=== PATIENT | female | born 1990 | race Caucasian/White ===

== ENCOUNTER 2016-12-30 16:14 | Emergency (ER) | payer OTHER ==
[~2016-12-30] VITALS: Ht 104.1 cm; Wt 115.7 kg
[2016-12-30 16:18] VITALS: BP 94/62
[2016-12-30] MEDS ORDERED: NAPROSYN500 MG PO (17:55)
[2016-12-30] MEDS ORDERED: LIDODERM 5%1 PATC1 TRANSDERM (17:55)
== END 2016-12-30 17:57 | disposition home or self-care (01) ==
LOC: ER 16:14
DX: S20.212A Contusion of left front wall of thorax, initial encounter (principal); T83.038A Leakage of other urinary catheter, initial encounter; F17.210 Nicotine dependence, cigarettes, uncomplicated; W50.0XXA Accidental hit or strike by another person, initial encounter; Y93.89 Activity, other specified; Y92.89 Other specified places as the place of occurrence of the external cause; Y99.9 Unspecified external cause status

== ENCOUNTER 2017-04-15 20:37 | Inpatient (IN) | payer OTHER ==
[~2017-04-15] VITALS: Ht 165.1 cm; Wt 105.7 kg
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
[~2017-04-15 20:37] MED LIST: LIDODERM 5%1 PATC1 TRANSDERM; NAPROSYN500 MG PO
[2017-04-15 23:10] VITALS: BP 89/50
[2017-04-16] MEDS ORDERED: FLEXERIL PO (01:13)
[2017-04-16] MEDS ORDERED: NEURONTIN 300300 M1 PO (01:13)
[2017-04-16] MEDS ORDERED: NORCO 10-325 T1 EACH PO (01:14)
[2017-04-16 03:23] VITALS: BP 86/43
[2017-04-16 06:33] LABS: HEMOGLOBIN 9.1 gm/dL (12.0-15.0); RBC 3.97 mil/uL (4.20-5.00); WBC 12.4 thou/uL (4.0-11.0)
[2017-04-16 06:35] LABS: ABSOLUTE NEUTROPHILS 7.5 thou/uL (1.4-8.2); BASOPHILS 0.7 % (0.0-2.0); EOSINOPHILS 5.5 % (0.0-3.0); HEMATOCRIT 29.3 % (37.0-47.0); MCH 22.9 pg (26.0-34.0); MCV 73.8 fL (80.0-100.0); MONOCYTES 9.2 % (1.0-8.0); PLATELET COUNT 462 thou/uL (150-400); POLYS 60.6 % (36.0-66.0); RDW 16.1 % (10.5-14.5)
[2017-04-16 06:38] LABS: MANUAL DIFF NO
[2017-04-16 06:59] LABS: ALBUMIN 2.2 g/dL (3.4-5.0); CALCIUM 8.4 mg/dL (8.5-10.1); CREATININE 0.8 mg/dL (0.6-1.0); MAGNESIUM 1.9 mg/dL (1.8-2.4); TOTAL BILIRUBIN 0.2 mg/dL (<0.1-1.0); TOTAL PROTEIN 6.4 g/dL (6.4-8.2)
[2017-04-16 07:03] LABS: POTASSIUM 2.7 mmol/L (3.5-5.1)
[2017-04-16 07:50] VITALS: BP 92/51
[2017-04-16 12:40] VITALS: BP 92/55
[2017-04-16 13:36] LABS: MAGNESIUM 2.2 mg/dL (1.8-2.4)
[2017-04-16 13:38] LABS: POTASSIUM 3.7 mmol/L (3.5-5.1)
[2017-04-16 15:15] VITALS: BP 98/61
[2017-04-16 19:17] VITALS: BP 108/66; BP 127/67
[2017-04-16 23:20] VITALS: BP 113/57; BP 13/57
[2017-04-17 03:07] VITALS: BP 101/57
[2017-04-17 07:20] VITALS: BP 85/44
[2017-04-17 11:30] VITALS: BP 112/64
[2017-04-17 16:20] VITALS: BP 95/58
[2017-04-17 19:45] VITALS: BP 97/37
[2017-04-18 00:17] VITALS: BP 111/64
[2017-04-18 05:15] VITALS: BP 113/67
[2017-04-18 07:52] VITALS: BP 106/61
[2017-04-18 12:00] VITALS: BP 101/59
[2017-04-18 16:00] VITALS: BP 110/62
[2017-04-18 20:01] VITALS: BP 112/69
[2017-04-19 03:44] VITALS: BP 103/55
[2017-04-19 08:00] VITALS: BP 90/58
[2017-04-19 09:47] LABS: ABSOLUTE NEUTROPHILS 5.3 thou/uL (1.4-8.2); BASOPHILS 1.4 % (0.0-2.0); EOSINOPHILS 8.8 % (0.0-3.0); HEMATOCRIT 32.4 % (37.0-47.0); HEMOGLOBIN 10.1 gm/dL (12.0-15.0); LYMPHOCYTES 29.5 % (24.0-44.0); MANUAL DIFF NO; MCH 22.7 pg (26.0-34.0); MCHC 31.1 g/dL (28.0-37.0); MCV 72.9 fL (80.0-100.0); MONOCYTES 7.1 % (1.0-8.0); PLATELET COUNT 402 thou/uL (150-400); POLYS 53.2 % (36.0-66.0); RBC 4.45 mil/uL (4.20-5.00); RDW 16.7 % (10.5-14.5)
[2017-04-19 09:49] LABS: CALCIUM 8.7 mg/dL (8.5-10.1); CREATININE 0.7 mg/dL (0.6-1.0); POTASSIUM 4.1 mmol/L (3.5-5.1)
[2017-04-19 12:00] VITALS: BP 103/56
[2017-04-19] MEDS ORDERED: NORCO 10-325 T1 EACH PO (14:59)
[2017-04-19 16:00] VITALS: BP 106/74
[2017-04-19 20:05] VITALS: BP 103/68
[2017-04-20 03:56] VITALS: BP 97/46
[2017-04-20 08:30] VITALS: BP 98/61
[2017-04-20 12:00] VITALS: BP 86/48
[2017-04-20] MEDS ORDERED: AUGMENTIN 875-1 EACH PO (14:09)
[2017-04-20 15:54] VITALS: BP 86/48
== END 2017-04-20 18:33 | disposition home or self-care (01) | DRG 871 ==
LOC: 4W 20:37
PROVIDERS: Hospitalist; Internal Medicine; Nurse Practitioner Acute Care
DX: A41.9 Sepsis, unspecified organism (principal); L89.894 Pressure ulcer of other site, stage 4; N76.4 Abscess of vulva; G82.20 Paraplegia, unspecified; F17.210 Nicotine dependence, cigarettes, uncomplicated; G89.29 Other chronic pain; M54.9 Dorsalgia, unspecified; E87.6 Hypokalemia; T14.8 Other injury of unspecified body region; N31.9 Neuromuscular dysfunction of bladder, unspecified; Z89.512 Acquired absence of left leg below knee; Z89.511 Acquired absence of right leg below knee; Z88.6 Allergy status to analgesic agent; Z90.49 Acquired absence of other specified parts of digestive tract; Z98.1 Arthrodesis status; Z83.3 Family history of diabetes mellitus
CPT/HCPCS: 10045

== ENCOUNTER 2020-08-19 11:14 | Inpatient (IN) | payer OTHER ==
[~2020-08-19] VITALS: Ht 152.4 cm; Wt 112.5 kg
[~2020-08-19 11:14] MED LIST changes: +AUGMENTIN 875-1 EACH PO; +CEFEPIME 22 GM/100 M IV; +ESCITALOPRA5 MG/5 ML PO; +FLEXERIL PO; +GABAPENTIN600 M1 PO; +LEVO-T25 MCG PO; +LINEZOLID600 MG/300 IV; +MIDODRINE HCL 55 M1 PO; +NEURONTIN 300300 M1 PO; +NORCO 10-325 T1 EACH PO; +OMEPRAZOLE 20 M20 M1 PO; +SEROQUEL 100 M100 M1 PO; +SLEEP AID50 MG PO; +SLOW FE142 MG PO; +TIZANIDINE HCL4 M1 PO; +TOPAMAX100 MG PO
--- NOTE | 2020-08-19 15:44 | NUR ---
[age] OLD FEMALE ADMITTED TO [facility] ROOM 456. PT WAS A DIRECT ADMIT FROM [facility] DUE TO WOUND INFECTION. PT ALERT AND ORIENTED TIMES FOUR. VSS. PT C/O PAIN PRN PAIN MEDICATIONS GIVEN WITH SOME RELEIF. COLOSTOMY AND LIEOSTOMY BOTH TO DD. PT TOLERATES MEDS AND MEALS. SPOKE WITH PT DAD THIS SHIFT. WILL CONTINUE TO MONITOR.
[2020-08-19 19:02] VITALS: BP 111/71
[2020-08-19 20:27] VITALS: BP 106/54
[2020-08-20 01:12] LABS: HEMATOCRIT 27.2 % (37.0-47.0); HEMOGLOBIN 8.2 gm/dL (12.0-15.0); MCH 30.8 pg (26.0-34.0); MCHC 30.2 g/dL (28.0-37.0); RBC 2.67 mil/uL (4.20-5.00); RDW 23.2 % (10.5-14.5); WBC 7.8 thou/uL (4.0-11.0)
[2020-08-20 01:37] LABS: ALBUMIN 1.4 g/dL (3.4-5.0); CALCIUM 7.3 mg/dL (8.5-10.1); CREATININE 0.7 mg/dL (0.6-1.0); TOTAL BILIRUBIN 0.3 mg/dL (0.2-1.0); TOTAL PROTEIN 4.7 g/dL (6.4-8.2)
[2020-08-20 01:44] LABS: POTASSIUM 2.8 mmol/L (3.5-5.1)
--- NOTE | 2020-08-20 06:00 | NUR ---
Pt. rested quietly at short intervals during the night when checked on during frequent rounds. She c/o hip and right stump pain and has been given ivp pain med (see emar) with some relief noted. Dressing to right stump is clean and dry. She refused being turned.
[2020-08-20 07:30] VITALS: BP 110/67
[2020-08-20 10:25] LABS: HEMATOCRIT 27.3 % (37.0-47.0); HEMOGLOBIN 8.4 gm/dL (12.0-15.0); MCH 30.5 pg (26.0-34.0); MCHC 30.6 g/dL (28.0-37.0); MCV 99.9 fL (80.0-100.0); RBC 2.74 mil/uL (4.20-5.00); RDW 22.8 % (10.5-14.5)
[2020-08-20 10:38] LABS: ALBUMIN 1.4 g/dL (3.4-5.0); CALCIUM 7.6 mg/dL (8.5-10.1); CREATININE 0.7 mg/dL (0.6-1.0); MAGNESIUM 1.4 mg/dL (1.8-2.4); POTASSIUM 3.5 mmol/L (3.5-5.1); TOTAL BILIRUBIN 0.3 mg/dL (0.2-1.0); TOTAL PROTEIN 4.9 g/dL (6.4-8.2)
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
[2020-08-20 15:21] VITALS: BP 110/73
--- NOTE | 2020-08-20 15:24 | NUR ---
Assumed pt care at 7am.Assessment completed.Vss.Pt c/o pain shot but too soon to give.Am meds givenwith breaqkfast and well tolerated.Pain shot given x2 this shift with relief.Dr Benson knuckler here, stated that pt will be going for i&d in am.No further c/o will continue to monitor.
--- NOTE | 2020-08-20 15:40 | NUR ---
Assumed pt care at 7am.Assessment c ompleted.vss.Pt c/o rt hip and leg pain rated 8/10.Too soon to given pain shot but given later at 10 and 1400 with relief.Aggie supervisor keymodule assembly here,stated that pt will be having i&d tomorrow morning.Pt aware.Pt constantly asking for soft drink but refused blood sugar check. Pt wanted drsg mannye done later this evening.Will continue to monitor.
[2020-08-20 20:14] VITALS: BP 112/64
--- NOTE | 2020-08-21 04:18 | NUR ---
08-20-20 CARE TRANSFERRED 1914 PT AAOX4, VSS, RR EVEN AND NONLABORED ON RA. PT CHEST S/L DRESSING DRY AND CLEAN AND PATENT. PT REPORTS PAIN AND PAIN HAS BEEN MANAGED BY MEDICATION. PT HAS I/D AND HAS BEEN NPO AFTER MIDNIGHT. ZERO S/S OF ACUTE DISTRESS NOTED. PT WILL CONTINUE TO BE MONITOR PER PROTOCOL.
[2020-08-21 08:00] VITALS: BP 108/68
--- NOTE | 2020-08-21 10:47 | NUR ---
CARE TEAM INDICATED THAT PT IS TO HAVE SURGICAL I&D OF R STUMP WOUND THIS DAY. CM HAD CALLED THREE HH PROVIDERS WHO USUALLY SERVICE [facility] YESTERDAY IN ANTICIPATION THAT PT WILL LIKELY BENEFIT FROM HH SERVICES UPON DC. CM CALLED [facility], [facility], AND [facility]. ALL INDICATED EITHER THEY DON'T CO TO [place] CURRENTLY OR DON'T TAKE MEDICAID. THERE HAD BEEN TALK OF WOUND VAC BEING ADMINISTERED POST I&D. CM FOLLOWING REGARDING DC PLANNING.
--- NOTE | 2020-08-21 13:14 | NUR ---
Assumed pt care at 7am.Pt in bed resting and c/o of dry mouth.Assessment completed.Vss.Pt wanted to know when she will be going for surgery today.Dr Phillips called and message left. Pain shot given twice so far today.Will continue to monitor.
[2020-08-21 16:00] VITALS: BP 99/53
[2020-08-21 20:04] VITALS: BP 107/53
--- NOTE | 2020-08-22 04:23 | NUR ---
ASSUMED CARE OF PT AT 1900HRS. PT AOX4 AND LETS NEEDS BE KNOWN. FALL PRECAUTION IN PLACE. PT ABLE TO TURN SELF AND ENCOURAGED TO DO SO. PT REPORTED PAIN AND NAUSEA, PRN PAIN MEDS PROVIDED. PT WAS PLACED NPO AT [place] FOR PROCEDURE IN THE AM. ABX TREATMENT CONTINUED. VSS AND NO S/S OF ACUTE DISTRESS. WILL CONTINUE TO MONITOR.
[2020-08-22 07:08] VITALS: BP 110/71
[2020-08-22 07:49] VITALS: BP 104/65
--- NOTE | 2020-08-22 09:57 | O ---
[facility] [place] [address] OPERATIVE REPORT Name: JOHN CHRISTINE Room #: 456-P ADM IN M.R.#: [id number] Admission: 08/19/20 Attend Phys: Anthony Moreira Ara Discharge: Date of : 89 Report #: [id number] THIS REPORT FOR: cc: Davy Huizar Richard R. DO VanDenBerghe, Gregory R. MD ~ DATE OF SERVICE: 08/22/2020 PREOPERATIVE DIAGNOSES: 1. Right lower extremity multiple ulcerations with nonhealing wound following an above-knee amputation. 2. Multiple medical comorbidities. POSTOPERATIVE DIAGNOSES: 1. Right lower extremity multiple ulcerations with nonhealing wound following an above-knee amputation. 2. Multiple medical comorbidities. PROCEDURE PERFORMED: Irrigation and debridement of skin, fascia, muscle and subcutaneous tissues up to right lower extremity dehisced wound/ulcerations. SURGEON: Filiberto Sheikh MD SUPERINTENDENT GAS DISTRIBUTION: Aggie Ross PA-C. ANESTHESIA: General. FLUIDS: 300 mL of crystalloid. DESCRIPTION OF PROCEDURE: After proper identification of the patient and operative site in preoperative holding area, the operative site was signed by myself. Prophylactic antibiotics given. The patient elected to receive a general anesthetic. We reviewed treatment options. The patient's initial surgery was last month with my partner, Dr. Phillips. She underwent an above-knee amputation and has not had any followup with my partner since the readmission. The patient was readmitted with wound breakdown and ulcerations in multiple areas on her right lower extremity and has wound team as well as Infectious Disease involved. We discussed treatment options and the patient has elected for an irrigation and debridement of her wound with continued management with ID and wound team and potential further recommendations to follow this initial procedure due to OR availability, I performed this procedure for my partner. The patient was brought back to the operative suite after induction of satisfactory general anesthesia per LMA, the right lower extremity was evaluated. Two areas of breakdown were noted, 1 along the more distal aspect of the stump, almost more in the midline was approximately 2.5 cm x 2 cm and then a [facility] [address] [place] [address] OPERATIVE REPORT Name: JOHN CHRISTINE Room #: 456-P ADM IN M.R.#: [id number] Admission: 08/19/20 Attend Phys: Anthony Orozco Discharge: Date of : 89 Report #: [id number] larger area of skin loss, followed by opening and dehiscence of the wound was noted and this was approximately 12 cm x 8 cm. The skin edges were debrided sharply as well as subcutaneous tissue on both these wounds along the more laterally based larger wound. The fascia and muscle was also debrided. This area was gently curetted, several subcutaneous stitches were removed. This did not appear to track more medially into the stump where this had healed. There was no prominence of her femur were exposed bone. There was excellent punctate bleeding from all tissues and this was mechanically debrided as well as irrigated with antibiotic irrigant until there appeared to be no devitalized tissue. This was then packed with 1 inch iodoform gauze followed by a sterile dressing overwrapped with Kerlix and Chau bandage. Postoperatively, the patient will be managed by wound team and they may elect or even consider wound VAC with the nature of this. <ELECTRONICALLY SIGNED> By: Filiberto Sheikh MD 08/22/20 0957 [id number] Filiberto Sheikh MD /nt
[2020-08-22 11:00] VITALS: BP 105/54
--- NOTE | 2020-08-22 12:11 | NUR ---
CARE TEAM INDICATED THAT PT WILL LIKELY NEED CONTINUED IV ABX AND WOUND CARE UPON DC. CM INFORMED PHYSICIAN THAT SERVICES AREN'T AVAIABLE IN HER SERVICES AREA. PHYSICIAN INDICATED THAT PT WOULD BE APPROPRIATE FOR LTAC AGAIN. KELBY CALLED AND SPOKE WITH PT ABOUT IT AND SHE INDICATED THAT SHE WOULD LIKE REFERRAL SENT TO [facility] FOR [facility]VIEW FOR POSSIBLE ADMISSION. REFERRAL SENT AWAITING RESPONSE. POSSIBLE DC READY TOMORROW.
--- NOTE | 2020-08-22 13:33 | NUR ---
[facility] SPOKE WITH PAPO IN ADM SHE RECEIVED REFERRAL AND WILL REVIEW.
[2020-08-22 15:34] VITALS: BP 100/64
--- NOTE | 2020-08-22 20:07 | NUR ---
Assumed pt care in the am, VS stable. Was off the ubnit upon shift change and was the the OR for the I and D. Pain is managed with medications, pt prefers to have nausea medication given at the same time with morphine, this was given a few hours apart. Partial relief is noted for the pain. Dressing clear dry and intact. Urostomy in place and patent, stool out of ostomy is noted and well. Refuses Q2 turns, and excessive request for soda is noted through out the day. Wound care not done, endrosed to the night nuse.POC followed.
[2020-08-22 21:01] VITALS: BP 98/55
--- NOTE | 2020-08-23 04:55 | NUR ---
ASSUMED CARE OF PATIENT AT 1900. PT IS A/O X4 AND IS CURRENTLY ON BEDREST. WOUND CARE COMPLETED DUE TO EXCESSIVE AMOUNT OF BLOODY DRAINAGE. UROSTOMY AND COLOSTOMY REMAIN IN PLACE AND BOTH WORKING APPROPRIATELY. VSS AFEBRILE. DOES C/O OF GENERALIZED PAIN AND PAIN IN HER BACK AND HIPS. PAIN MEDICATION GIVEN DIRECTED. FALL PRECAUTIONS IMPLEMENTED, CALL LIGHT IS WITHIN REACH.
[2020-08-23 08:11] VITALS: BP 88/53
--- NOTE | 2020-08-23 14:30 | NUR ---
Patient refused dressing change.
[2020-08-23 20:12] VITALS: BP 96/59
--- NOTE | 2020-08-24 02:51 | NUR ---
PT C/O PAIN AT START OF SHIFT,MANAGED WITH MED.PT REF HER DRSG CHANGE TO HER R STUMP,PT STATED THAT THE PYSICIAN TOLD HER THAT IF THE DRSG IS C/D/I,THEN NO NEED TO CHANGE.AT THIS TIME,PT'S DRSG IS C/D/I,NO DRAINGE NOTED.COLOSTOMY AND UROSTOMY IN PLACE.NO CARE NEEDED AT THIS TIME.PT SLEEPING AT THIS TIME.CALL LIGHT WITHIN REACH.
[2020-08-24 09:08] VITALS: BP 104/65
--- NOTE | 2020-08-24 11:04 | NUR ---
ASSUMED CARE AT 0700. PT IS A&O X4. PT HAS A PORT CATH AND IS INTACT AND SHOWS NO SIGNS OF REDNESS OR SWELLING. PT COMPLAINS OF SLIGHT NUMBNESS, TINGLING, PAIN. PT WAS GIVEN MORPHINE. PT HAS ILLESTOMY WITH DELUNA PLACED. COLONSTOMY IS INTACT AND HAS NO BM INSIDE OF RIGHT NOW. FALL PRECAUTION. CALL LIGHT WITHIN REACH. WILL CONTINUE TO MONITOR.
[2020-08-24 15:31] VITALS: BP 97/55
[2020-08-24 20:00] VITALS: BP 100/70
--- NOTE | 2020-08-25 03:50 | NUR ---
PT CARE ASSUMED WITH PT IN BED WATCHING TV.PT IS A/OX4.PT IS ON BEDREST AND BLE AMPUTEE.PT C/O PAIN WITH PARTIAL RELIEF WITH MORPHINE NAD HYDROCODONE.PT HAS A UROSTOMY AND A COLOSTOMY IN PLACE .PT HAS MIRALAX DAILY FOR CONSTIPATION AND DEMANDED FOR MIRALAX DUE TO NO OUTPUT IN COLOSTOMY FOR 2DAYS.PT IS ACCUCHECK ACHS WITH SSI.IV ACCESS ON LT CHEST PORT A CATH.WILL CONTINUE TO MONITOR
[2020-08-25 08:13] VITALS: BP 95/53
--- NOTE | 2020-08-25 10:24 | NUR ---
OSTOMY CARE; UROSTOMY AND COLOSTOMY POUCHES INTACT, URINE LIGHT YELLOW, CONNECTED TO DEP DRAINAGE SYSTEM, PT STATES POUCH CHANGED YESTERDAY, COLOSTOMY POUCH INTACT, NO STOOL YET, TAKING MIRALAX, SUPPLIES PLACED AT BS, WILL CONT TO FOLLOW
[2020-08-25] MEDS ORDERED: MEROPENEM1 GM IV (12:28)
[2020-08-25] MEDS ORDERED: OXYCODONE HCL 55 MG PO (12:28)
--- NOTE | 2020-08-25 15:08 | NUR ---
UPDATED MED LIST SENT TO [facility] THIS AM. THEY INDICATED THAT THEY WILL LIKELY BE ABLE TO ACCEPT PT THIS DAY. CM NOTIFIED PT. CM AWAITING RESPONSE FORM [facility].
--- NOTE | 2020-08-25 16:18 | NUR ---
[facility] CAN ACCEPT AWAITING BED TO BECOME OPEN. IF BED OPENS AFTER 5 THEY WILL CALL THE UNIT. ORDERS WILL NEED TO BE FAXED TO [place]. REPORT TO BE CALLED TO F: . [facility] FORM IN [employer]. WILL NEED TO CALL [employer] ([facility]) .
[2020-08-25 17:41] VITALS: BP 103/67
--- NOTE | 2020-08-25 19:22 | NUR ---
Assumed pt care at 7am.Pt in bed most of the time but ablr to repositioned self for comfort.Assessment completed.vss.Pt c/o back and hip pain. Morphine ivp given as ordered with relief.Dr Alexander here,order noted.care services manager called [facility] for bed availability but no response noted.Wound picture taken and new drsg applied.Dr Holloway notified about pt dc to [place] today and he rounded on pt ,additional order noted.Pt will possible dc tomorrow.Pt c/o constipation,Dr Alexander notified and order noted.Will continue to monitor.
[2020-08-25 20:23] VITALS: BP 105/69
--- NOTE | 2020-08-26 02:52 | NUR ---
PT CARE ASSUMED WITH PT IN BED WATCHING TV.PT IS A/O X4.PT IS ON BEDREST AND ABLE TO MOVE SELF FOR COMFORTABLE POSITION.PT C/O PAIN MANAGED WITH MORPHINE AND OXYCODONE.PT IS ACCUCHECK ACHS WITH [facility] BUT DIDNOT NEED COVERAGE.PT WAS TO BE D/C YESTERDAY BUT [facility] DIDNOT HAVE BED.WILL BE D/C TODAY IF BED AVAILABLE.PT AV ACCESS ON RT CHEST SL WITH ABX.WILL CONTINUE TO MONITOR POC
[2020-08-26 09:21] VITALS: BP 122/76
--- NOTE | 2020-08-26 14:32 | NUR ---
[facility] IS ABLE TO ACCEPT PT THIS DAY. PT GOING TO [facility] [address] SUN[address] [facility] TRANSPORT ARRANGED FOR 1630. CHART COPY MADE. REPORT TO BE CALLED TO . PT ASKED THAT HER FAMILY BE TEXT ABOUT DC CM TEXT THAT KE IS DISCHARGING TO [facility] THIS DAY AT 4:30 WITH THE FACILITY PHONE NUMBER TO , , . NO OTHER CM INTERVENTION INDICATED CASE CLOSED.
--- NOTE | 2020-08-26 15:15 | NUR ---
FAXED CLINICAL UPDATE TO [facility] SPOKE WITH PAPO IN ADM SHE RECEIVED UPDATE.
--- NOTE | 2020-08-26 15:33 | NUR ---
Assumed pt care at 7am.Pt in bed resting and sometimes dozes off.Assessment completed,vss.Pt tolerated med and diet.Morphine sulfate ivp given q4h as requested by pt.Dr Alexander here,dc order noted.Pt refused drsg to sacrum and right stump.Report given to Anita velasquez at [facility].Pt informed about brain picker at 1600 today.Will continue to monitor.
[2020-08-26 15:45] VITALS: BP 116/67
--- NOTE | 2020-08-26 16:31 | NUR ---
[facility]SP[facility] AT 1630 TODAY.
== END 2020-08-26 20:21 | DRG 853 ==
LOC: 4S 11:14 → 4W 12:13
PROVIDERS: ADMIT Hospitalist; ATTEND Hospitalist
PROC: 0QBB0ZZ Excision of Right Lower Femur, Open Approach (ICD-10-PCS; principal; 2020-08-22)
DX: A41.9 Sepsis, unspecified organism (principal); E43 Unspecified severe protein-calorie malnutrition; L89.154 Pressure ulcer of sacral region, stage 4; L89.324 Pressure ulcer of left buttock, stage 4; L89.314 Pressure ulcer of right buttock, stage 4; L89.893 Pressure ulcer of other site, stage 3; L03.115 Cellulitis of right lower limb; G82.20 Paraplegia, unspecified; M86.8X8 Other osteomyelitis, other site; D62 Acute posthemorrhagic anemia; Z68.42 Body mass index [BMI] 45.0-49.9, adult; F17.210 Nicotine dependence, cigarettes, uncomplicated; J45.909 Unspecified asthma, uncomplicated; G89.29 Other chronic pain; M54.9 Dorsalgia, unspecified; M54.2 Cervicalgia; T87.81 Dehiscence of amputation stump; E03.9 Hypothyroidism, unspecified; R33.9 Retention of urine, unspecified; E87.6 Hypokalemia; F12.90 Cannabis use, unspecified, uncomplicated; E66.01 Morbid (severe) obesity due to excess calories; B96.5 Pseudomonas (aeruginosa) (mallei) (pseudomallei) as the cause of diseases classified elsewhere; B96.4 Proteus (mirabilis) (morganii) as the cause of diseases classified elsewhere; B96.20 Unspecified Escherichia coli [E. coli] as the cause of diseases classified elsewhere; B96.6 Bacteroides fragilis [B. fragilis] as the cause of diseases classified elsewhere; Z90.49 Acquired absence of other specified parts of digestive tract; Z89.512 Acquired absence of left leg below knee; Z83.3 Family history of diabetes mellitus; Z71.6 Tobacco abuse counseling; Z71.41 Alcohol abuse counseling and surveillance of alcoholic; Z88.6 Allergy status to analgesic agent; Z88.1 Allergy status to other antibiotic agents; Z88.8 Allergy status to other drugs, medicaments and biological substances; Z91.19 Patient's noncompliance with other medical treatment and regimen; Z79.899 Other long term (current) drug therapy
CPT/HCPCS: 10047; 50010; 50101; 50386; 57091; 62110; 62900; 70005

== ENCOUNTER 2020-10-11 22:47 | Inpatient (IN) | payer OTHER ==
[~2020-10-11] VITALS: Ht 137.2 cm; Wt 103.0 kg
[~2020-10-11 22:47] MED LIST changes: +CARVEDILOL3.125 MG PO; +CEFEPIME 11 GM/50 ML IV; +MEROPENEM1 GM IV; +OXYCODONE HCL 55 MG PO
[2020-10-12 00:39] VITALS: BP 145/120
[2020-10-12 04:11] VITALS: BP 118/79
[2020-10-12 07:18] VITALS: BP 118/63
--- NOTE | 2020-10-12 07:42 | NUR ---
PT ADMITTED DIRECTLY FROM [facility].AROUND 0040 AM . ALERT AND ORIENTED X4. VSS AFEBRILE. UNLABORED ON RA. SHES HERE FOR LOW GRADE FEVERS,N/V, UTI. R/O COVID AND WOUND INFECTIONS TO RLE AND PERIRECTAL WOUND. SEE CHART FOR HX. MEDICATED WITH HYDROCODONE FOR PAIN. BENADRYL GIVEN FOR ITCHING, ZOFRZN GIVEN FOR NAUSEA. PT SLEPT MOST OF NIGHT AFTER SHE HAD A SANDWICH TO EAT. WOUND PICTURES TAKEN. NYSTATIN TO GROIN UNDER BREASTS AN ABDOMINAL FOLDS ORDERED TO REDDENED AREAS. EXPLAINED FALL PRECAUTIONS. ADMISSION CONSENT FORM COPIES GIVEN TO PT. PT INFORMED WE NEE A COPT OF HER ADVANCE DIRECTIVE. IV ABX STARTED ORDERED.
--- NOTE | 2020-10-12 14:50 | NUR ---
CARE TAKEN OVER A 0700, PT ALERT AND ORIENTED X4, FLAT AFFECT. PT DENIES ANY CHEST PAIN, NAUSEA AND VOMITTING. PT ON ROOM AIR NO SIGNS OF DISTRESS. PT COMPLAINS OF GENERALIZED PAIN, PAIN MED GIVEN PER ORDER. PT'S COLOSTOMY AND ILEOSTOMY IN PLACE. WOUND CARE COMPLETED PER ORDER. FALL PRECAUTIONS IN PLACE. WILL CONTINUE TO MONITOR. DENIES ANY NEEDS TRISH
[2020-10-12 15:16] VITALS: BP 123/81
[2020-10-12 19:56] VITALS: BP 111/75
--- NOTE | 2020-10-12 22:38 | NUR ---
PT ALERT AND ORIENTED X4 .VSS AFEBRILE. UNLABORED ON RA. IV ABX INFUSED ORDERED. ZOFRAN GIVEN FOR NAUSEA. BENADRYL FOR ITCHING. PT RESTING QUIETLY PRESENTLY. NO S/S DISTRESS. BED DOWN. CALL LIGHT IN REACH. BED ALARM ON. PROGRESSING TOWARDS D/C GOALS.
--- NOTE | 2020-10-12 23:47 | NUR ---
WOUND CARE DONE TO LLE POSTERIOR, RIGHT ANTERIOR AKA, RIGHT POSTERIOR AKA/LEG, AND PERIRECTAL WOUND. PT REPOSITIONED. PT SLEEPING PRESENTLY. NO S/S DISTRESS.
[2020-10-13 04:20] VITALS: BP 115/66
[2020-10-13 04:49] LABS: ABSOLUTE NEUTROPHILS 5.8 thou/uL (1.4-8.2); BASOPHILS 1.3 % (0.0-2.0); EOSINOPHILS 8.1 % (0.0-3.0); HEMATOCRIT 37.2 % (37.0-47.0); HEMOGLOBIN 11.7 gm/dL (12.0-15.0); LYMPHOCYTES 30.7 % (24.0-44.0); MCHC 31.4 g/dL (28.0-37.0); MCV 95.5 fL (80.0-100.0); MONOCYTES 8.2 % (1.0-8.0); PLATELET COUNT 336 thou/uL (150-400); POLYS 51.7 % (36.0-66.0); RDW 17.3 % (10.5-14.5); WBC 11.1 thou/uL (4.0-11.0)
[2020-10-13 04:51] LABS: CALCIUM 8.4 mg/dL (8.5-10.1); CREATININE 0.7 mg/dL (0.6-1.0); POTASSIUM 3.5 mmol/L (3.5-5.1)
--- NOTE | 2020-10-13 06:09 | NUR ---
Pt progressing towards d/c goals. Covid negative. Hydrocodone given for generalized pain and JUSTIN. Benadryl given for itching.Pt resting sleeping presently.
[2020-10-13 07:20] VITALS: BP 115/72
[2020-10-13 15:32] VITALS: BP 116/74
--- NOTE | 2020-10-13 18:14 | NUR ---
ASSUMED PATIENT CARE AT 0700. A/O X4. AFEBRILE.VSS. SLOWLY TOWARDS POC GOALS.
[2020-10-13 19:21] VITALS: BP 124/84
--- NOTE | 2020-10-13 21:20 | NUR ---
PT OFF ISOLATION VSS AFEBRILE. UNLABORED ON RA. BENADRYL GIVEN FOR ITCHING .PT REQUESTED HYDROCODONE FOR GENERALIZED DISCOMFORT. BED DOWN. CALL LIGHT IN REACH. PROGRESSING TOWARDS D/C GOALS. IV ABX ORDERED.
[2020-10-14 04:03] VITALS: BP 115/76
--- NOTE | 2020-10-14 06:35 | NUR ---
PT PROGRESSING TOWARDS. D/C GOALS VSS AFEBRILE. WOUND CARE COMPLETED ORDERED HOWEVER PHARMACY STATED DAKINS NOT AVAILABLE UNTIL 0900. I USED NS WET TO DRY. HYDROCODONE CONTROLLING GENERALIZED PAIN.
[2020-10-14 08:07] VITALS: BP 107/68
--- NOTE | 2020-10-14 10:18 | NUR ---
OSTOMY CARE; POUCH EDGES LOOSE BOTH STOMAS, PT AWAKE COOPERATIVE, STATES SHE IS UNSURE HOW LONG POUCHES HAVE BEEN ON? DATE ON UROSTOMY POUCH IS 09/26, CHANGED UROSTOMY HOLLSITER POUCH #8446, CONNECTED TO DEP DRAIANGE SYSTEM, STOMA PINK VIABLE, FLAT W/ SKIN SURFACE, PERISTOMAL SKIN INTACT, URINE CLEAR YELLOW, NEW POUCH NIKOLAS CUT TO FIT TO COLOSTOMY STOMA, STOMA PINK VIABLE SLIGHTLY BUDDED W/ LOOSE BROWN STOOL NOTED, INFORMED PT POUCHES NEED TO BE CHANGED Q 3-5 DAYS TO PREVENT SKIN BREAKDOWN, VERBAL UNDERSTANDING, SUPPLIES PLACED AT BS RECOMMENDATIONS; CHANGE POUCHES Q3-5 DAYS AND PRN, EMPTY PRN WARD SECRETARY AWARE
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
[2020-10-14 16:41] VITALS: BP 112/73
--- NOTE | 2020-10-14 17:58 | NUR ---
THIS RN SPOKE WITH PT AND FAMILY MULTIPLE TIMES RE: PT MOM . PT STEPFATHER (AUTHORIZED CONTACT DAMION Waller) WANTS PT TO 'GET A PASS' TO ATTEND 100+MILES AWAY. STEPFATHER DOES NOT SEEM TO UNDERSTAND DEPTH OF PT MEDICAL CONDITION/INFECTION. THIS RN ENCOURAGED PT TO THINK ABOUT VIRTUAL ATTENDANCE VIA SMARTPHONE TO ALLOW PT TO CONTINUE TO RECEIVE MEDICAL CARE FOR HER INFECTION. PT SEEMED OPEN TO THE IDEA OF VIRTUAL ATTENDANCE AND STATED "I NEED TO GET BETTER AND GET BACK HOME TO MY DAUGHTER". PT HAS SISTERS THAT WOULD BE ABLE TO ASSIST WITH VIRTUAL VISIT.
[2020-10-14 19:45] VITALS: BP 124/24
--- NOTE | 2020-10-15 03:55 | NUR ---
ASSUMED CARE OF PATIENT AT 1900. VSS, AFEBRILE. PAIN MEDS GIVEN NEEDED, MINIMAL RELIEF NOTED. STATES THAT IT'S NOT ALWAYS EFFECTIVE. UNWILLING TO TURN AT TIMES. DISCUSSED MOMS , SHE WILL BE ABLE TO WATCH VIA HER TELEPHONE. SLEPT OFF AND ON THROUGH THE NIGHT. NO S/S OF DISCOMFORT. PROGRESSING SLOWLY TOWARDS POC GOALS.
[2020-10-15 05:32] VITALS: BP 98/50
--- NOTE | 2020-10-15 08:55 | NUR ---
ASSUMED CARE FOR PT AT SHIFT CHANGE. L CHEST PORT CAP CHANGED. PT HAS DECIDED TO ATTEND HER MOTHER'S VIRTUALLY AND MAY NEED ASSISTANCE WITH IPAD LATER IF HER PHONE IS NOT WORKING. PT IS IN PLEASANT MOOD AND GRIEVING APPROPRIATELY. DENIES NEED FOR SPIRITUAL SUPPORT AT THIS TIME.
--- NOTE | 2020-10-15 12:26 | NUR ---
NAVIN reviewed chart and spoke with nursing and attending physician. Pt is on IV abx. Pt is progressing towards goals for discharge. Discharge home is anticipated in 1-2 days. NAVIN placed call to pt's room. No answer. NAVIN asked nursing [place] [phone] to discuss discharge plans. Plan is for pt to discharge home when medically stable. NAVIN is following to assist as needed with discharge planning.
[2020-10-15 15:05] VITALS: BP 106/66
[2020-10-15 19:55] VITALS: BP 129/86
[2020-10-16 03:44] VITALS: BP 131/85
[2020-10-16 07:39] LABS: HEMATOCRIT 34.6 % (37.0-47.0); HEMOGLOBIN 10.8 gm/dL (12.0-15.0); MCH 29.6 pg (26.0-34.0); MCHC 31.2 g/dL (28.0-37.0); MCV 94.8 fL (80.0-100.0); RBC 3.65 mil/uL (4.20-5.00); RDW 17.1 % (10.5-14.5); WBC 11.1 thou/uL (4.0-11.0)
[2020-10-16 07:46] LABS: CALCIUM 8.6 mg/dL (8.5-10.1); CREATININE 0.7 mg/dL (0.6-1.0); POTASSIUM 3.6 mmol/L (3.5-5.1)
[2020-10-16 07:49] LABS: APTT 24.8 Seconds (24.5-32.8); INR 1.1; PROTIME 11.4 Seconds (9.3-11.4)
[2020-10-16 08:30] VITALS: BP 118/75
--- NOTE | 2020-10-16 08:48 | NUR ---
PT OFF FLOOR TO IR
--- NOTE | 2020-10-16 10:49 | NUR ---
SW reviewed chart and spoke with nursing and attending physician. Pt is currently off the unit having PICC line placed in IR. Per attending physician, pt will need petroleum terminal plant operator IV abx. SW to follow up with pt to discuss possible LTAC placement. SW is following to assist as needed with discharge planning.
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
[2020-10-16 15:35] VITALS: BP 126/76
--- NOTE | 2020-10-16 17:26 | NUR ---
PT STATES SHE IS TOO MUCH PAIN TO MOVE AROUND FOR THIS RN TO PERFORM WOUND CARE. PT STATES LATER TONIGHT MAY BE OK.
[2020-10-16 19:15] VITALS: BP 120/72
--- NOTE | 2020-10-16 19:31 | NUR ---
REPORT GIVEN TO NEW ORDER CLERK. PT STATES NO NEEDS AT THIS TIME. PT STATES SHE IS STILL VERY TENDER WHERE L CHEST PORT WAS REMOVED. PT MOVING BOTH ARMS INDEPENDENTLY.
[2020-10-16 20:00] VITALS: BP 120/72
[2020-10-17 04:54] VITALS: BP 117/69
[2020-10-17 07:59] VITALS: BP 119/70
--- NOTE | 2020-10-17 10:13 | NUR ---
OSTOMY CARE; POUCHES ON 4 DAYS, CHANGED USING NIKOLAS CONVEX UROSTOMY POUCH #8457 TO ILEO CONDUIT, STOMA PINK, VIABLE, PERISTOMAL SKIN INTACT, URINE CLEAR, CONNECTED TO DEP DRAINAGE, NEW POUCH NIKOLAS 2 PIECE SYSTEM CUT TO FIT APPLIED TO COLOSTOMY STOMA, STOMA PINK, VIABLE, SLIGHTLY BUDDED, PERISTOMAL SKIN INTACT, SOFT BROWN STOOL NOTED, PT ALERT, COOPERATIVE, SUPPLIES AT BS RECOMMENDATIONS; CHANGE POUCHES Q 3-5 DAYS AND PRN, EMPTY PRN FUNDS TRANSFER CLERK AWARE
--- NOTE | 2020-10-17 11:21 | NUR ---
NAVIN reviewed chart and spoke with nursing and attending physician. Pt had PICC line placed yesterday and will need IV abx: cefepime for at least 10 days. NAVIN met with pt at bedside to discuss referral to LTAC. Pt is agreeable with referral to [facility]. SW faxed referral and notified [facility] of new referral. Pt is medically stable for discharge. Will need insurance authorization for LTAC placement. NAVIN is following to assist as needed with discharge planning.
[2020-10-17 16:25] VITALS: BP 135/84
[2020-10-17 20:37] VITALS: BP 108/71
--- NOTE | 2020-10-17 23:00 | NUR ---
ASSESSMENT COMPLETED. PT ALERT AND ORIENTED.COMPLAINS ABOUT PAIN NOT BEING WELL MANAGED.PT GIVEN PRN MORPHINE AND ADVISED THAT SHE WILL GET HYDROCODONE FIRST. SHE IS EATING OKAY-NO NAUSEA OR VOMITING.DRSG TO WOUNDS ARE INTACT. PT IS AFEBRILE. CONTINUES ON IV ABT.CALL LIGHT WITHIN REACH. WILL CONTINUE WITH POC TILL EOS.
[2020-10-18 03:39] VITALS: BP 115/73
[2020-10-18 07:18] VITALS: BP 122/82
[2020-10-18 09:30] VITALS: BP 113/78
[2020-10-18 15:05] VITALS: BP 113/78
--- NOTE | 2020-10-18 16:27 | NUR ---
RN ASSUMED PT'S CARE AT 0700AM, PT IS A&OX3, PT'S VS ARE STABLE, PT IS CONTINUING IV ABX, PAIN MANAGEMENT AND WOUND CARE , PT CAN HELP CHANGING HER POSITION , PT IS RELAXING NOW.
[2020-10-18 19:27] VITALS: BP 115/74
--- NOTE | 2020-10-18 21:39 | NUR ---
PT ALERT AND ORIENTED X4. VSS AFEBRILE. LCTA AND UNLABORED ON RA. C/O ITCHIND AND PAIN 03/17. MEDICATED WITH BENADRYL AND MORPHINE. PT IS RESTING QUIETLY. NO S/S DISTRESS. NO C/O PAIN.
[2020-10-19 04:05] VITALS: BP 118/77
[2020-10-19 07:07] VITALS: BP 124/73
[2020-10-19 15:28] VITALS: BP 106/65
[2020-10-19 19:25] VITALS: BP 12/3
--- NOTE | 2020-10-19 19:43 | NUR ---
RN ASSUMED PT'S CARE AT 0700AM, PT IS A&OX3, PT IS ON ROOM AIR , PT'S VS ARE STABLE, PT'S PAIN CAN CONTROL BY PO MEDICATIONS, PT'S WOUND CARE HAS DONE, PT MAY DC TO [facility] IF BED AVAILABLE.
--- NOTE | 2020-10-20 01:34 | NUR ---
PT ALERT AND ORIENTED X4. VSS AFEBRILE. PT QUIET AND NONTALKATIVE TONIGHT. MEDICATED FOR PAIN WITH HYDROCODONE. BENADRYL FOR ITCHING. SHE BEEN RESTING QUIETLY. NO S/S DISTRESS. ALL DRESSINGS INTACT CHANGED BY DAY SHIFT. NO S/S DISTRESS. IV ABX HUNG ORDERED.
[2020-10-20 03:26] VITALS: BP 117/78
--- NOTE | 2020-10-20 06:30 | NUR ---
PROGRESSING TOWARDS D/C GOALS. VSS. AFEBRILE. GOOD UO. 1 LGBM. HYDROCODONE FOR NONCARDIAC CP NEAR OLD PORTACATH SITE. 03/17. BENADRYL FOR ITCHING. NO S/S DISTRESS. ALL DRESSINGS CLEAN DRY AND INTACT.
[2020-10-20 07:09] VITALS: BP 122/75
--- NOTE | 2020-10-20 09:57 | NUR ---
OSTOMY CARE; AWAKE, ALERT, COOPERATIVE, CHANGED UROSTOMY POUCH W/ NIKOLAS #8485, CONNECTED TO DEP DRAINAGE, STOMA PINK VIABLE FLAT W/ SKIN SURFACE, PERISTOMAL SKIN INTACT, CLEAR YELLOW URINE NOTED, NEW POUCH NIKOLAS CUT TO FIT POUCH APPLIED TO COLOSTOMY STOMA, STOMA PINK VIABLE, FLAT W/ SKIN SURFACE, PERISTOMAL SKIN INTACT, LOOSE BROWN STOOL NOTED, SUPPLIES AT BS RECOMMENDATIONS; CHANGE POUCH Q 3-5DAYS AND PRN, EMPTY PRN DIRECTOR OF CORPORATE RESPONSIBILITY AWARE
--- NOTE | 2020-10-20 10:47 | NUR ---
NAVIN reviewed chart and spoke with nursing and attending physician. Pt is medically stable for discharge to [facility] today. NAVIN faxed updated clinical info to [facility] liaison for review. Awaiting bed availability at this time. NAVIN placed call to pt's room. No answer. Awaiting update from [facility] at this time. NAVIN is following to assist as needed with discharge planning.
[2020-10-20 15:03] VITALS: BP 127/72
--- NOTE | 2020-10-20 19:32 | NUR ---
PT IS A&OX3, PT IS CONTINUING IV ABX AND WOUND CARE , PT'S VS ARE STABLE, PT DENIES PAIN AND SOB AT DAY SHFIT, PT MAY DC TOMORROW.
[2020-10-20 20:02] VITALS: BP 110/65
--- NOTE | 2020-10-20 22:44 | NUR ---
PT ALERT AND ORIENTED X4 VSS AFEBRILE. BENADRYL GIVEN FOR ITCHING. DRESSINGS REMAIN CLEAN DRY AND INTACT. COLOSTOMY DRAINING SOFT BROWN STOOL. ILEOSTOMY DRAINING CLEAR YELLOW URINE. NO S/S DISTRESS PRESENTLY.
[2020-10-21 04:52] VITALS: BP 138/75
--- NOTE | 2020-10-21 06:51 | NUR ---
PT PROGRESSING YOWARDS D/C GOALS, VSS AFEBRILE. REDRESSED OLD PORTACATH SITE. PT HAD PULLED OFF DRESSING. SMALL AMT SEROSANGINOUS DRAINAGE NOTED. INFORMED DAY SHIFT NS AND PATIENT TO SHOW SITE TO DR UPON ROUNDS, MEDICATED FOR PAIN X2 TONIGHT. SHE IS NOW SLEEPING AND WAS AWAKE ALL NIGHT.
[2020-10-21 07:31] VITALS: BP 111/72
--- NOTE | 2020-10-21 12:04 | NUR ---
ASSUMED PT CARE AT SHIFT CHANGE, PT HAS BEEN "ITCHY" ALL MORNING, PAIN IS INCREASING. PT IS AGREEABLE TO LTAC AT DISCHARGE, NO FURTHER CONCERNS AT THIS TIME.
[2020-10-21 15:25] VITALS: BP 108/73
--- NOTE | 2020-10-21 15:34 | NUR ---
NAVIN reviewed chart and spoke with nursing and attending physician. [facility] SW contacted [facility] liaison, who states they do not have a bed today. NAVIN met with pt at bedside to provide update. Pt verbalized understanding. SW updated nursing and attending physician. SW is following to assist as needed with discharge planning.
[2020-10-21 19:38] VITALS: BP 130/81
[2020-10-22 04:45] VITALS: BP 118/73
[2020-10-22 08:30] VITALS: BP 113/73
[2020-10-22 09:30] VITALS: BP 113/73
--- NOTE | 2020-10-22 13:45 | NUR ---
NAVIN reviewed chart and spoke with nursing and attending physician. Pt is medically stable for discharge. NAVIN contacted [facility] liaison, who states they do not have a bed available for pt today. NAVIN met with pt at bedside to provide update. SW discussed alternate LTAC options. Pt states she has been to [facility] in the past, and does not want to return there. [facility] is not an option, as they do not accept pt's insurance. Plan is for pt to discharge to [facility] when medically stable. NAVIN is following to assist as needed with discharge planning.
[2020-10-22 15:00] VITALS: BP 102/68
--- NOTE | 2020-10-22 18:19 | NUR ---
RN ASSUMED PT'S CARE AT 0700AM, PT IS A&OX3, PT IS CONTINUING IV ABX, PAIN MANAGEMENT AND WOUND CARE, PT'S VS ARE STABLE, PT 'S PLAN IS DISCHARG TO [facility] WHEN BED IS AVAILIBLE .
[2020-10-22 20:17] VITALS: BP 134/91
[2020-10-23 05:03] VITALS: BP 123/81
--- NOTE | 2020-10-23 05:42 | NUR ---
Pt. requested IV benadryl at HS for itching with good relief. She stated she slept well during the night. Repositioned for comfort. Medicated for chronic back and neck pain x1 this shift with partial relief.Denies any other concern. Making progress towards care plan goals.
[2020-10-23 08:30] VITALS: BP 123/81
--- NOTE | 2020-10-23 15:48 | NUR ---
SW reviewed chart and spoke with nursing and attending physician. Pt is medically stable for discharge to [facility] pending bed availability. SW contacted [facility] liaison, Claudette, who states they do not have a bed available today. NAVIN met with pt at bedside to provide update. Pt verbalized understanding. SW is following to assist as needed with discharge planning.
[2020-10-23 16:36] VITALS: BP 112/72
[2020-10-23 19:17] VITALS: BP 104/69
--- NOTE | 2020-10-23 19:32 | NUR ---
DRESSING TO WOUND CHANGED WITH NOT DRAINAGE NOTED. SHE TOLERATED WELL. PRN PAIN MEDICATION ADMINISTERED PRIOR TO ADMINISTRATION. WILL CONT TO MONITOR AND ASSIST NEEDED.
--- NOTE | 2020-10-24 07:52 | NUR ---
Medicated for chronic back and neck pain at HS and again this am with some relief. She requested for IV benadryl at HS and this am for itching with good relief. Repositioned for comfort. Wound dressings intact. Colostomy and urostomy emptied. Bed alarm on, calls appropriately for assistance.Tolerating room air well. Afebrile. Making some progress towards care plan goals.
[2020-10-24 08:17] VITALS: BP 118/79
--- NOTE | 2020-10-24 10:06 | NUR ---
OSTOMY CARE; AWAKE, ALERT, COOPERATIVE, POUCHES ON X 4 DAYS, CHANGED USING ONE PIECE CONVEXT 1 08/15' TO UROSTOMY STOMA. STOMA PINK VIABLE FLAT W/ SKIN SURFACE, URINE YELLOW, CLEAR, CONNECTED TO DEP DRAIANGE, NEW POUCH NIKOLAS 2 PIECE SYSTEM CUT TO FIT APPLIED TO COLOSTOMY, STOMA PINK VIABLE, SLIGHTLY BUDDED, LOOSE BROWN STOOL NOTED, PERISTOMAL SKIN BOTH STOMAS INTACT RECOMMENDATIONS; CHANGED POUCHES Q 3-5 DAYS AND PRN, EMTPY PRN BROKERAGE MANAGER AWARE
--- NOTE | 2020-10-24 15:24 | NUR ---
NAVIN reviewed chart and spoke with nursing and attending physician. Pt is medically stable to discharge to [facility] pending bed availability. NAVIN faxed updated clinical info to [facility] for review. vacation planner faxed the MAR. [facility] does not have a bed available for pt today. NAVIN met with pt at bedside to provide update. If [facility] has a bed for pt over the weekend, pt might discharge to [facility]. Should pt finish IV abx, pt could discharge home. Pt is agreeable with discharge plan. vacation planner has contacted agencies. If [facility] has a bed available, liaison will notify pt's nurse over the weekend, and assist with coordinating discharge. NAVIN is following and available to assist as needed with discharge planning.
[2020-10-24 15:35] VITALS: BP 102/67
[2020-10-24 19:41] VITALS: BP 119/79
--- NOTE | 2020-10-24 21:58 | NUR ---
PT RESTING IN BED IN THE DARK WATCHING VIDEOS ON THE PHONE. PT DID MOVE HEAD TO LOOK AT NURSE DURING INTERACTIONS. PT REQUESTED PRN IV BENADRYL AND PAIN MED, COMPLIANT WITH HS MEDS. PT PROVIDED HS SNACK. COLOSTOMY ILEOSTOMY INTACT, STUMP DRESSING NOTED DRY AND INTACT.
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
[2020-10-25 05:09] VITALS: BP 120/80
[2020-10-25 10:48] LABS: HEMATOCRIT 35.2 % (37.0-47.0); HEMOGLOBIN 11.1 gm/dL (12.0-15.0); MCH 29.9 pg (26.0-34.0); MCHC 31.4 g/dL (28.0-37.0); MCV 95.3 fL (80.0-100.0); RBC 3.69 mil/uL (4.20-5.00); WBC 10.4 thou/uL (4.0-11.0)
[2020-10-25 11:00] LABS: CALCIUM 8.8 mg/dL (8.5-10.1); CREATININE 0.7 mg/dL (0.6-1.0); MAGNESIUM 1.6 mg/dL (1.8-2.4); POTASSIUM 3.5 mmol/L (3.5-5.1)
[2020-10-25 11:29] VITALS: BP 111/76
--- NOTE | 2020-10-25 13:40 | NUR ---
NO ISSUES THIS SHIFT, DRESSING CHANGES COMPLETED. READING BOOK MOST OF THE DAY.
[2020-10-25 17:11] VITALS: BP 113/74
[2020-10-25 21:01] VITALS: BP 126/85
[2020-10-26 04:16] VITALS: BP 117/79
[2020-10-26 05:22] LABS: CALCIUM 8.8 mg/dL (8.5-10.1); CREATININE 0.6 mg/dL (0.6-1.0); MAGNESIUM 1.5 mg/dL (1.8-2.4); POTASSIUM 3.4 mmol/L (3.5-5.1)
[2020-10-26 05:36] LABS: HEMATOCRIT 34.2 % (37.0-47.0); HEMOGLOBIN 10.9 gm/dL (12.0-15.0); MCH 30.2 pg (26.0-34.0); MCHC 31.9 g/dL (28.0-37.0); MCV 94.9 fL (80.0-100.0); RBC 3.6 mil/uL (4.20-5.00); RDW 17.7 % (10.5-14.5); WBC 9.4 thou/uL (4.0-11.0)
--- NOTE | 2020-10-26 07:26 | NUR ---
PT MAKING SLOW PROGRESS TOWARDS GOALS. X2 DOSES OF LORTAB GIVEN FOR PAIN PER ORDERS. "IT DOESN'T REALLY HELP MUCH ANYMORE." CONTINUE TO MONITOR.
[2020-10-26 08:56] VITALS: BP 122/80
[2020-10-26 15:48] VITALS: BP 115/69
[2020-10-26 20:02] VITALS: BP 107/67
[2020-10-27 04:59] VITALS: BP 122/84
--- NOTE | 2020-10-27 05:42 | NUR ---
Pt. slept well during the night. Medicated for pain x1 and requested IV benadryl x 1 with good relief. Last dose of IV ABT given last night. Dressing intact on wounds.Colostomy and urostomy in place. Afebrile. Making some progress towards care plan goals.
[2020-10-27 07:32] VITALS: BP 109/76
--- NOTE | 2020-10-27 07:55 | NUR ---
OSTOMY CARE; AWAKE, ALERT, COOPERATIVE, POSSIBLE D'C TODAY? UROSTOMY POUCH CHANGED USING NIKOLAS CONVEX 1 08/15' APPLIANCE, STOMA PINK VIABLE FLAT W/ SKIN SURFACE, PERISTOMAL SKIN INTACT, CONNECTED TO DEP DRAINAGE, URINE CLEAR, NEW POUCH NIKOLAS TO COLOSTOMY, STOMA PINK VIABLE SLIGHTLY BUDDED, PERISTOMAL SKIN INTACT, LOOSE BROWN STOOL NOTED, SUPPLIES AT BS RECOMMENDATIONS; CONT SAME CARE, CHANGE Q3-5 DAYS AND PRN, EMTPY PRN AUTOMATION MANAGER AWARE
--- NOTE | 2020-10-27 12:00 | NUR ---
ANTICIPATING FOR D/C TODAY TO HOME WITH HOME HEALTH. WOUND CAREE COMPLETED AND WOUND PICTURES TAKEN. WAITING FOR CM FOR ABOUT HOME HEALTH INFO. PAIN MED GIVEN BEFORE WOUND DRESSING CHANGE. FALL PRECAUTIONS IN PLACE. DENIES ANY NEEDS AT THE MOMENT, WILL CONTINUE TO MONITOR
[2020-10-27 12:56] VITALS: BP 109/76
--- NOTE | 2020-10-27 14:23 | NUR ---
DISCHARGE NOTE: NAVIN reviewed chart and spoke with nursing and atending physician. Pt is medically stable for discharge home today. Pt has completed course of IV abx. NAVIN met with pt at bedside to discuss discharge plan. Pt is aware and agreeable with plan for discharge home today with HH. NAVIN verified her home address. NAVIN contacted multiple home health agencies: [facility], [facility], [facility], [facility], [facility], [facility], [facility], [facility], [facility], [facility] and [facility]. All cannot accept pt due to location or insurance. NAVIN spoke with Amanda in intake at [facility], who states they can accept pt. NAVIN faxed info and discharge orders/summary. senior planner to arrange stretcher van transportation home through pt's Medicaid. Pt aware of three hour window of arrival of transportation. NAVIN updated pt's nurse. NAVIN notified [facility] liaison of pt's discharge disposition. Contact info for HH placed in pt's discharge summary. No additional SW needs identified at this time, but is available to assist should needs arise.
--- NOTE | 2020-10-27 14:55 | NUR ---
PT DISCHARGING TO HOME TODAY ARRANGED STRETCHER VAN WITH [facility] THEY WILL PRINCIPAL TECHNICAL WRITER BETWEEN [phone] TODAY TRIP #[id number].
[2020-10-27 15:45] VITALS: BP 120/76
--- NOTE | 2020-10-27 17:42 | NUR ---
PICC LINE D/C, DISCHAGE INSTRUCTIONS GIVEN PT, STAQTED UNDERTSANDING. ALL PT BELONGING PACKED AND SENT WITH PT
== END 2020-10-27 17:53 | disposition home health service (06) | DRG 871 ==
LOC: 3W 22:47
PROVIDERS: Internal Medicine; Radiology Diagnostic Radiology; ADMIT Hospitalist; ATTEND Hospitalist
PROC: B548ZZA Ultrasonography of Superior Vena Cava, Guidance (ICD-10-PCS; principal; 2020-10-16)
PROC: 0JPT0WZ Removal of Totally Implantable Vascular Access Device from Trunk Subcutaneous Tissue and Fascia, Open Approach (ICD-10-PCS; principal; 2020-10-16)
PROC: 02HV33Z Insertion of Infusion Device into Superior Vena Cava, Percutaneous Approach (ICD-10-PCS; principal; 2020-10-16)
DX: A41.9 Sepsis, unspecified organism (principal); L89.893 Pressure ulcer of other site, stage 3; L89.154 Pressure ulcer of sacral region, stage 4; E43 Unspecified severe protein-calorie malnutrition; G82.20 Paraplegia, unspecified; Z68.43 Body mass index [BMI] 50.0-59.9, adult; T87.43 Infection of amputation stump, right lower extremity; T87.44 Infection of amputation stump, left lower extremity; L03.818 Cellulitis of other sites; T85.9XXA Unspecified complication of internal prosthetic device, implant and graft, initial encounter; Y82.8 Other medical devices associated with adverse incidents; J45.909 Unspecified asthma, uncomplicated; G89.4 Chronic pain syndrome; F17.200 Nicotine dependence, unspecified, uncomplicated; R33.9 Retention of urine, unspecified; F32.9 Major depressive disorder, single episode, unspecified; F41.9 Anxiety disorder, unspecified; E87.6 Hypokalemia; E83.42 Hypomagnesemia; F10.10 Alcohol abuse, uncomplicated; E66.01 Morbid (severe) obesity due to excess calories; E03.9 Hypothyroidism, unspecified; Y83.8 Other surgical procedures as the cause of abnormal reaction of the patient, or of later complication, without mention of misadventure at the time of the procedure; Y90.9 Presence of alcohol in blood, level not specified; Z20.822 Contact with and (suspected) exposure to COVID-19; Z93.3 Colostomy status; Z89.611 Acquired absence of right leg above knee; Z79.899 Other long term (current) drug therapy; Y92.89 Other specified places as the place of occurrence of the external cause; Z91.14 Patient's other noncompliance with medication regimen; Z90.49 Acquired absence of other specified parts of digestive tract
CPT/HCPCS: 10779

== ENCOUNTER 2020-11-19 10:05 | Inpatient (IN) | payer OTHER ==
[~2020-11-19] VITALS: Ht 165.1 cm; Wt 97.5 kg
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
[2020-11-19 08:53] VITALS: BP 110/74
[2020-11-19 10:25] VITALS: BP 110/74
[2020-11-19 13:24] LABS: HEMATOCRIT 38.3 % (37.0-47.0); HEMOGLOBIN 12.4 gm/dL (12.0-15.0); MCHC 32.3 g/dL (28.0-37.0); MCV 92.9 fL (80.0-100.0); RBC 4.12 mil/uL (4.20-5.00); RDW 16.4 % (10.5-14.5); WBC 10.4 thou/uL (4.0-11.0)
[2020-11-19 13:35] LABS: CALCIUM 8.9 mg/dL (8.5-10.1); CREATININE 0.6 mg/dL (0.6-1.0); POTASSIUM 3.6 mmol/L (3.5-5.1)
[2020-11-19 16:20] VITALS: BP 100/60
[2020-11-19 19:51] VITALS: BP 111/73
[2020-11-20 05:41] LABS: HEMATOCRIT 37.2 % (37.0-47.0); HEMOGLOBIN 11.8 gm/dL (12.0-15.0); MCH 29.6 pg (26.0-34.0); MCHC 31.7 g/dL (28.0-37.0); MCV 93.5 fL (80.0-100.0); RBC 3.98 mil/uL (4.20-5.00); RDW 15.9 % (10.5-14.5); WBC 7.8 thou/uL (4.0-11.0)
[2020-11-20 06:12] LABS: CALCIUM 8.6 mg/dL (8.5-10.1); CREATININE 0.8 mg/dL (0.6-1.0); POTASSIUM 3.7 mmol/L (3.5-5.1)
[2020-11-20 07:45] VITALS: BP 107/68
[2020-11-20 07:57] VITALS: BP 107/68
[2020-11-20 16:09] VITALS: BP 111/75
[2020-11-20 22:20] VITALS: BP 112/58
[2020-11-21 07:47] VITALS: BP 105/63
[2020-11-21 12:54] VITALS: BP 112/72
[2020-11-21 23:29] VITALS: BP 150/76
[2020-11-22 08:47] VITALS: BP 103/61
[2020-11-22 11:50] LABS: HEMATOCRIT 36.4 % (37.0-47.0); HEMOGLOBIN 11.9 gm/dL (12.0-15.0); MCH 30.3 pg (26.0-34.0); MCHC 32.6 g/dL (28.0-37.0); MCV 92.8 fL (80.0-100.0); RBC 3.92 mil/uL (4.20-5.00); RDW 16.2 % (10.5-14.5); WBC 7.6 thou/uL (4.0-11.0)
[2020-11-22 11:56] LABS: CALCIUM 8.9 mg/dL (8.5-10.1); CREATININE 0.7 mg/dL (0.6-1.0); POTASSIUM 3.8 mmol/L (3.5-5.1)
[2020-11-22] MEDS ORDERED: AMOX TR-K CLV1 EAC4 PO (12:06)
[2020-11-22] MEDS ORDERED: PERCOCET 10-321 EAC1 PO (12:06)
[2020-11-22] MEDS ORDERED: MIRALAX17 GM PO (12:06)
[2020-11-22 12:23] VITALS: BP 103/61
== END 2020-11-22 16:55 | disposition home or self-care (01) | DRG 871 ==
LOC: 4W 10:05
PROVIDERS: ADMIT Hospitalist; ATTEND Hospitalist
DX: A41.9 Sepsis, unspecified organism (principal); L89.154 Pressure ulcer of sacral region, stage 4; L89.324 Pressure ulcer of left buttock, stage 4; L89.314 Pressure ulcer of right buttock, stage 4; L89.213 Pressure ulcer of right hip, stage 3; E43 Unspecified severe protein-calorie malnutrition; G82.20 Paraplegia, unspecified; N39.0 Urinary tract infection, site not specified; L03.116 Cellulitis of left lower limb; L03.115 Cellulitis of right lower limb; J45.909 Unspecified asthma, uncomplicated; E03.9 Hypothyroidism, unspecified; F17.210 Nicotine dependence, cigarettes, uncomplicated; F41.9 Anxiety disorder, unspecified; R33.9 Retention of urine, unspecified; E66.01 Morbid (severe) obesity due to excess calories; T87.9 Unspecified complications of amputation stump; Y83.5 Amputation of limb(s) as the cause of abnormal reaction of the patient, or of later complication, without mention of misadventure at the time of the procedure; N31.9 Neuromuscular dysfunction of bladder, unspecified; M54.2 Cervicalgia; G89.4 Chronic pain syndrome; M54.9 Dorsalgia, unspecified; Z71.41 Alcohol abuse counseling and surveillance of alcoholic; F12.90 Cannabis use, unspecified, uncomplicated; Z89.512 Acquired absence of left leg below knee; Z89.611 Acquired absence of right leg above knee; Z88.6 Allergy status to analgesic agent; Z88.1 Allergy status to other antibiotic agents; Z88.8 Allergy status to other drugs, medicaments and biological substances; Z90.49 Acquired absence of other specified parts of digestive tract; Z93.1 Gastrostomy status; Z68.35 Body mass index [BMI] 35.0-35.9, adult; Z91.14 Patient's other noncompliance with medication regimen; Z79.891 Long term (current) use of opiate analgesic; Z74.01 Bed confinement status
CPT/HCPCS: 10047

== ENCOUNTER 2020-12-13 19:50 | Inpatient (IN) | payer OTHER ==
[~2020-12-13] VITALS: Ht 157.5 cm; Wt 93.0 kg
[~2020-12-13 19:50] MED LIST changes: +AMOX TR-K CLV1 EAC4 PO; +MIRALAX17 GM PO; +PERCOCET 10-321 EAC1 PO
[2020-12-13 21:35] VITALS: BP 111/72
[2020-12-13 23:42] VITALS: BP 109/77
[2020-12-14 03:30] VITALS: BP 105/68
[2020-12-14 05:33] LABS: HEMATOCRIT 42.2 % (37.0-47.0); HEMOGLOBIN 13.6 gm/dL (12.0-15.0); MCH 29.7 pg (26.0-34.0); MCHC 32.3 g/dL (28.0-37.0); MCV 91.9 fL (80.0-100.0); RBC 4.59 mil/uL (4.20-5.00); RDW 15.4 % (10.5-14.5); WBC 13.4 thou/uL (4.0-11.0)
[2020-12-14 05:43] LABS: CALCIUM 8.8 mg/dL (8.5-10.1); CREATININE 0.8 mg/dL (0.6-1.0); POTASSIUM 3.8 mmol/L (3.5-5.1)
[2020-12-14 07:15] VITALS: BP 109/72
[2020-12-14 11:02] VITALS: BP 112/71
[2020-12-14 15:02] VITALS: BP 108/74
[2020-12-14 20:15] VITALS: BP 107/69
[2020-12-15 04:20] VITALS: BP 104/62
[2020-12-15 06:32] LABS: HEMATOCRIT 38.4 % (37.0-47.0); HEMOGLOBIN 12.4 gm/dL (12.0-15.0); MCH 29.6 pg (26.0-34.0); MCHC 32.4 g/dL (28.0-37.0); MCV 91.3 fL (80.0-100.0); RBC 4.2 mil/uL (4.20-5.00); RDW 14.9 % (10.5-14.5); WBC 9.3 thou/uL (4.0-11.0)
[2020-12-15 06:53] LABS: CALCIUM 8.7 mg/dL (8.5-10.1); CREATININE 0.5 mg/dL (0.6-1.0); POTASSIUM 3.5 mmol/L (3.5-5.1)
[2020-12-15 07:19] VITALS: BP 106/64
--- NOTE | 2020-12-15 07:36 | HC ---
[facility] [place] [address] CONSULTATION Name: JOHN CHRISTINE Room #: 354-P ADM IN M.R.#: [id number] Admission: 12/13/20 Attend Phys: Linh Henderson MD Discharge: Date of : 88 Report #: [id number] THIS REPORT FOR: cc: Davy Huizar Richard R. DO Barry, Joseph W. MD ~ DOC #: [id number] Josue Chavira MD ATTENDING PHYSICIAN: Dr. Henderson. REASON FOR EVALUATION: Sepsis due to complicated urinary tract infection with bilateral hydronephrosis, left greater than right. The patient with previous stenting. HISTORY OF PRESENT ILLNESS: Chart reviewed, patient examined. This is a 30-year-old woman with extensive medical history who is frequently admitted to this facility, most often with infection related issues, who does have severe longstanding sacral decubitus ulcer. Has underlying paraplegia. She was most recently discharged on 11/22. She states she was doing fairly well at home and developed left-sided abdominal pain and discomfort. Within a short period, presented to the Emergency Room at [facility]. White count was noted to be elevated to 15. Urinalysis with marked pyuria and bacteriuria. CT imaging showed moderate to severe left hydronephrosis with presence of a nephroureteral stent. Also, mild right hydronephrosis. It is notable she has underlying urostomy as well as a colostomy. Due to the complex nature of her situation, she was transferred for ongoing care including urology. She notes feel somewhat poorly, although she is not overtly hemodynamically unstable. She has been afebrile, has not required supplemental oxygen. She is generally lucid. ALLERGIES: LISTED TO LIDOCAINE, CODEINE, FENTANYL, VANCOMYCIN. CURRENT MEDICATIONS: Include enoxaparin, cefepime, levofloxacin, hydrocodone, morphine, acetaminophen. PAST MEDICAL HISTORY: As described above, paraplegia, history of asthma, recurrent infectious complications with recurrent UTIs, chronic sacral decubitus ulcer, advanced age, hypothyroidism, anxiety. PAST SURGICAL HISTORY: Previous left BKA. SOCIAL HISTORY: Smokes cigarettes. No ethanol. No current illicit drug use. FAMILY HISTORY: Noncontributory. [address] [address] CONSULTATION Name: JOHN CHRISTINE Room #: 354-P [facility] IN [facility].#: [id number] Admission: 12/13/20 Attend Phys: Linh Henderson MD Discharge: Date of : 89 Report #: [id number] REVIEW OF SYSTEMS: Otherwise notable above. She has not had significant anorexia. Denies pulmonary related complaints. PHYSICAL EXAMINATION: GENERAL: She appears chronically ill, undernourished. She is pleasant, cooperative, mild to moderate distress. VITAL SIGNS: Temperature 98.9, pulse 91, respirations 18, blood pressure 109/72. SKIN: Warm, dry. HEENT: Normocephalic. Extraocular muscles intact. NECK: Supple. LUNGS: Diminished breath sounds. HEART: Borderline tachycardic, regular. I do not appreciate a murmur. ABDOMEN: Obese, distended, somewhat firm. Has an ileostomy as well as a colostomy in place. There is no overt peritoneal signs. GENITOURINARY: Deferred. RECTAL: Deferred. LABORATORY DATA: Electrolytes: Sodium 141, potassium 3.8, chloride 105, bicarbonate is 20, BUN and creatinine 11 and 0.8, glucose of 71. CBC: White count of 13.4, H and H 13.6 and , platelets of 264. Review of recent cultures dating back to October of this year, sacral site had polymicrobial growth including gram negatives primarily as well as Enterococcus. Gram negatives include E. coli, Proteus, Klebsiella. Did have some Prevotella as well. Second culture from the knee had Alcaligenes as well as Acinetobacter, multiple resistant organisms. Do not have any recent urine culture results. ASSESSMENT: 1. Complicated urinary tract infection with obstructive uropathy, bilateral hydronephrosis, left greater than right with early sepsis. 2. Paraplegia with a complication of longstanding sacral decubitus ulcer, has been confirmed to have osteomyelitis previously. PLAN: We will continue empiric therapy with cefepime and Levaquin. Await results. Try to obtain those from [facility] when they are available. At this point, she is not overtly toxic. Continue to monitor expectantly. Wound care as prescribed. We will add incentive spirometry. Discussed with Dr. Holloway. MD YOEL Vides/TOÑO/LV [address] [address] CONSULTATION Name: JOHN CHRISTINE Room #: 354-P ADM IN .R.#: [id number] Admission: 12/13/20 Attend Phys: Linh Henderson MD Discharge: Date of : 88 Report #: [id number] <ELECTRONICALLY SIGNED> By: Josue Chavira MD 12/15/20 0736 8 1 Josue Chavira MD /nt
[2020-12-15 11:24] VITALS: BP 100/62
[2020-12-15 12:15] LABS: ALBUMIN 2.9 g/dL (3.4-5.0); DIRECT BILIRUBIN < 0.1 mg/dL (<0.1-0.2); SGOT 48 U/L (15-37); SGPT 32 U/L (14-59); TOTAL BILIRUBIN 0.3 mg/dL (0.2-1.0); TOTAL PROTEIN 6.8 g/dL (6.4-8.2)
[2020-12-15 16:35] VITALS: BP 111/73
[2020-12-15 19:35] VITALS: BP 101/61
[2020-12-16 04:55] VITALS: BP 93/45
[2020-12-16 06:14] LABS: HEMATOCRIT 39.9 % (37.0-47.0); HEMOGLOBIN 12.8 gm/dL (12.0-15.0); MCH 29.2 pg (26.0-34.0); MCV 91.2 fL (80.0-100.0); RBC 4.37 mil/uL (4.20-5.00); RDW 15.2 % (10.5-14.5); WBC 10.2 thou/uL (4.0-11.0)
[2020-12-16 06:30] LABS: CALCIUM 8.5 mg/dL (8.5-10.1); CREATININE 0.6 mg/dL (0.6-1.0); POTASSIUM 3.9 mmol/L (3.5-5.1)
[2020-12-16 07:24] VITALS: BP 98/63
[2020-12-16 11:19] VITALS: BP 100/58
[2020-12-16 20:37] VITALS: BP 98/52
[2020-12-17 05:14] LABS: HEMATOCRIT 37.7 % (37.0-47.0); HEMOGLOBIN 12.2 gm/dL (12.0-15.0); MCH 29.3 pg (26.0-34.0); MCHC 32.3 g/dL (28.0-37.0); MCV 90.7 fL (80.0-100.0); RBC 4.16 mil/uL (4.20-5.00)
[2020-12-17 05:57] VITALS: BP 101/64
[2020-12-17 08:03] VITALS: BP 97/62
[2020-12-17 11:18] VITALS: BP 86/51
[2020-12-17 14:29] VITALS: BP 100/54
[2020-12-17 19:13] VITALS: BP 95/59
[2020-12-18 04:40] VITALS: BP 102/62
[2020-12-18 11:11] VITALS: BP 96/59
[2020-12-18 15:05] VITALS: BP 110/84
[2020-12-18 20:45] VITALS: BP 101/48
[2020-12-19] VITALS (7 sets, daily range): BP systolic 78–131; BP diastolic 48–88
[2020-12-19 04:59] LABS: INR 1.03; PROTIME 11.2 Seconds (10.5-12.1)
[2020-12-19 05:18] LABS: ALBUMIN 2.5 g/dL (3.4-5.0); CALCIUM 8.2 mg/dL (8.5-10.1); CREATININE 0.7 mg/dL (0.6-1.0); PHOSPHORUS 3.1 mg/dL (2.5-4.9); POTASSIUM 3.3 mmol/L (3.5-5.1)
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
[2020-12-20 04:57] VITALS: BP 109/61
[2020-12-20 05:04] LABS: CALCIUM 8.7 mg/dL (8.5-10.1); CREATININE 0.8 mg/dL (0.6-1.0); POTASSIUM 3.5 mmol/L (3.5-5.1)
[2020-12-20 07:16] VITALS: BP 104/69
[2020-12-20 11:15] VITALS: BP 106/71
[2020-12-20 15:12] VITALS: BP 97/62
[2020-12-20 19:24] VITALS: BP 109/71
[2020-12-21 04:15] VITALS: BP 103/62
[2020-12-21 07:18] VITALS: BP 91/50
[2020-12-21 11:24] VITALS: BP 104/68
[2020-12-21 15:14] VITALS: BP 84/50
[2020-12-21 20:30] VITALS: BP 98/56
[2020-12-22 04:42] VITALS: BP 105/60
[2020-12-22 07:21] VITALS: BP 99/63
[2020-12-22 11:22] VITALS: BP 99/65
[2020-12-22 16:22] VITALS: BP 92/56
--- NOTE | 2020-12-22 18:06 | PATH ---
[facility] [address] PATHOLOGY RPT PROCEDURE Name: JOHN CHRISTINE Room #: 354-P ADM IN M.R.#: [id number] Admission: 12/13/20 Date of : 88 Discharge: Report #: [id number] Path Case #: [id number] [facility] Accession Number: [id number] . 01 Material submitted: . PART A: duodenum - DUODENUM FOR CELIAC PART B: stomach - ANTRUM FOR H.PYLORI PART C: esophagus - DISTAL ESOPHAGUS. Modifiers: distal PART D: esophagus - MID ESOPHAGUS. Modifiers: mid . 01 Clinical history: . A. R/O CELIAC B. R/O H.PYLORI C-D. R/O EOE . 02 Diagnosis: A. Duodenal mucosa, duodenum, biopsy: - Intact normal villous architecture. - Negative for increased intraepithelial lymphocytes. . B. Gastric mucosa, antrum, biopsy: - Mild inactive chronic gastritis. - H. pylori stain is negative for H. pylori-like organisms. . C. Squamous and gastric mucosa, distal esophagus, biopsy: - Squamous mucosa with markedly increased intraepithelial eosinophils (greater than 150 eosinophils per high power field). See comment. - Gastric mucosa with extensive foveolar hyperplasia. - Negative for dysplasia, intestinal metaplasia, or malignancy. . D. Squamous mucosa, mid esophagus, biopsy: - Increased intraepithelial eosinophils (approximately up to 65 eosinophils per high power field). See comment. LBQ 12/19/2020 1143 Local . 02 Comment: The histological findings in parts C and D with significantly increased intraepithelial eosinophils within the esophagus is compatible with eosinophilic esophagitis. Clinical and endoscopic correlation is recommended. (SCA/db; 12/19/2020) . 02 Electronically signed: . Deshawn Cancino DO, Pathologist NPI- [id number] . 01 Gross description: [place] [address] PATHOLOGY RPT PROCEDURE Name: JOHN CHRISTINE Room #: 354-P [facility] IN [facility]#: [id number] Admission: 12/13/20 Date of : 88 Discharge: Report #: [id number] Path Case #: [id number] A. The specimen is received in formalin, labeled "John Christine", "duodenum for celiac". Received are 2 segments of pale gama soft tissue measuring 0.2 and 0.3 cm. The specimen is entirely submitted in cassette A1. . B. The specimen is received in formalin, labeled "AntwonenJohn garcia", "antrum rule out H. pylori". Received are 2 segments of pale gama soft tissue measuring 0.1 and 0.2 cm. The specimen is entirely submitted in cassette B1. . C. The specimen is received in formalin, labeled "John Christine", "distal esophagus biopsy rule out EOE". Received are multiple fragments of pale white soft tissue ranging in size from 0.1 cm to 0.2 cm. The specimen is entirely submitted in cassette C1. . D. The specimen is received in formalin, labeled "Eisenbeiss, John", "mid esophagus biopsy rule out EOE". Received are 2 fragments of pale white soft tissue measuring 0.1 and 0.1 cm. The specimen is entirely submitted in cassette D1.([facility]; 12/18/2020) SUMMER/MELISA 12/18/2020 1004 Local . 02 Pathologist provided ICD-10: K29.50, K22.9 . 02 CPT . 041991, 870618, 231027, 977712, X14404 Specimen Comment: A courtesy copy of this report has been sent to [phone], [phone] Specimen Comment: [phone], Specimen Comment: Report sent to ,DR GRIER / DR ADAMS Specimen Comment: A duplicate report has been generated due to demographic updates. Performed at: 01 [facility] [address] [facility] [address], [place] [id number] MD Jaylen Virk MD Phone: [phone] Performed at: 02 [facility] [address] [id number] MD Mike Choudhury MD Phone: [phone]
[2020-12-22 19:55] VITALS: BP 129/80
[2020-12-23] VITALS (10 sets, daily range): BP systolic 95–123; BP diastolic 6–74
[2020-12-23] MEDS ORDERED: PROTONIX 20 MG20 M1 PO (10:58)
[2020-12-23] MEDS ORDERED: PERCOCET 10-321 EAC1 PO (11:01)
[2020-12-24 04:05] VITALS: BP 102/54
[2020-12-24 07:27] VITALS: BP 91/56
[2020-12-24 15:20] VITALS: BP 98/71
[2020-12-24 19:11] VITALS: BP 119/67
[2020-12-25 03:19] VITALS: BP 96/66
[2020-12-25 05:30] LABS: HEMATOCRIT 34.6 % (37.0-47.0); HEMOGLOBIN 11.3 gm/dL (12.0-15.0); MCH 29.2 pg (26.0-34.0); MCHC 32.6 g/dL (28.0-37.0); MCV 89.5 fL (80.0-100.0); RBC 3.87 mil/uL (4.20-5.00); RDW 14.7 % (10.5-14.5); WBC 8.9 thou/uL (4.0-11.0)
[2020-12-25 06:06] LABS: CALCIUM 8.4 mg/dL (8.5-10.1); CREATININE 0.7 mg/dL (0.6-1.0); POTASSIUM 3.9 mmol/L (3.5-5.1)
[2020-12-25 07:30] VITALS: BP 108/72
[2020-12-25 16:05] VITALS: BP 111/70
[2020-12-25 19:30] VITALS: BP 106/68
[2020-12-26 04:00] VITALS: BP 101/68
[2020-12-26 07:14] VITALS: BP 100/68
[2020-12-26] MEDS ORDERED: OXYCODONE HCL 55 MG PO (12:02)
[2020-12-26 13:46] VITALS: BP 100/68
== END 2020-12-26 20:00 | disposition home or self-care (01) | DRG 853 ==
LOC: 3W 19:50
PROVIDERS: Hospitalist; Nurse Practitioner; Nurse Practitioner Family; Physician Assistant; Radiology Diagnostic Radiology; ADMIT Internal Medicine; ATTEND Internal Medicine
PROC: 0DB78ZX Excision of Stomach, Pylorus, Via Natural or Artificial Opening Endoscopic, Diagnostic (ICD-10-PCS; 2020-12-17)
PROC: 0DB38ZX Excision of Lower Esophagus, Via Natural or Artificial Opening Endoscopic, Diagnostic (ICD-10-PCS; 2020-12-17)
PROC: 0DB28ZX Excision of Middle Esophagus, Via Natural or Artificial Opening Endoscopic, Diagnostic (ICD-10-PCS; 2020-12-17)
PROC: 0DB98ZX Excision of Duodenum, Via Natural or Artificial Opening Endoscopic, Diagnostic (ICD-10-PCS; 2020-12-17)
PROC: 0T913ZZ Drainage of Left Kidney, Percutaneous Approach (ICD-10-PCS; principal; 2020-12-19)
PROC: 0TP9XDZ Removal of Intraluminal Device from Ureter, External Approach (ICD-10-PCS; 2020-12-23)
PROC: 0T1 Urinary System, Bypass (ICD-10-PCS; 2020-12-23)
DX: A41.9 Sepsis, unspecified organism (principal); L89.324 Pressure ulcer of left buttock, stage 4; L89.314 Pressure ulcer of right buttock, stage 4; L89.213 Pressure ulcer of right hip, stage 3; E43 Unspecified severe protein-calorie malnutrition; G82.20 Paraplegia, unspecified; N13.6 Pyonephrosis; K92.2 Gastrointestinal hemorrhage, unspecified; T87.43 Infection of amputation stump, right lower extremity; T87.44 Infection of amputation stump, left lower extremity; J45.909 Unspecified asthma, uncomplicated; F41.9 Anxiety disorder, unspecified; E03.9 Hypothyroidism, unspecified; L89.159 Pressure ulcer of sacral region, unspecified stage; F17.210 Nicotine dependence, cigarettes, uncomplicated; K59.00 Constipation, unspecified; G89.29 Other chronic pain; E66.01 Morbid (severe) obesity due to excess calories; N31.9 Neuromuscular dysfunction of bladder, unspecified; R33.9 Retention of urine, unspecified; K76.0 Fatty (change of) liver, not elsewhere classified; F12.90 Cannabis use, unspecified, uncomplicated; F10.10 Alcohol abuse, uncomplicated; R53.81 Other malaise; Y83.8 Other surgical procedures as the cause of abnormal reaction of the patient, or of later complication, without mention of misadventure at the time of the procedure; R13.10 Dysphagia, unspecified; K44.9 Diaphragmatic hernia without obstruction or gangrene; K20.90 Esophagitis, unspecified without bleeding; K43.5 Parastomal hernia without obstruction or gangrene; Z20.822 Contact with and (suspected) exposure to COVID-19; Z88.6 Allergy status to analgesic agent; Z88.1 Allergy status to other antibiotic agents; Z88.8 Allergy status to other drugs, medicaments and biological substances; Z89.512 Acquired absence of left leg below knee; Z93.3 Colostomy status; Z68.37 Body mass index [BMI] 37.0-37.9, adult; Z71.6 Tobacco abuse counseling; Z91.14 Patient's other noncompliance with medication regimen
CPT/HCPCS: 10080; 10879; 50010; 50101; 50172; 57160; 62110; 62900; 70005

== ENCOUNTER 2021-01-11 17:12 | Inpatient (IN) | payer OTHER ==
[~2021-01-11 17:12] MED LIST changes: +PROTONIX 20 MG20 M1 PO
[2021-01-11 18:08] VITALS: BP 117/82
[2021-01-11 19:56] VITALS: BP 114/79
[2021-01-11 23:55] VITALS: BP 112/76
--- NOTE | 2021-01-12 00:01 | NUR ---
PT ALERT AND ORIENTED X4. VSS. HRR ST ON THE MONITOR. FLUIDS OFFERED TO PT. TURKET SANDWICH TRAY GIVEN TO PT,. OXYCODONE GIVEN FOR C/O BACK PAIN 02/14. SHE FELL ASLEEP SHORTLY AFTER PAIN PILL. WOUND PICTURES TAKEN, WET TO DRY DRESSINGS DONE UNTIL W/C SEES PT TOMORROW. ID AND W/C CONSULTS PLACED. COLOSTOMY BAG CHANGED. LG AMTS SOFT BROWN STOOL NOTED. ILEOSTOMY DRAINING YELLOW URINE IN ADEQUATE AMTS. WOUND SMELL FOWL. SKIN FOLDS ARE REDDENED AND FOWL SMELLING. PARTAIL BATH COMPLETED. BED DOWN CALL LIGHT IN REACH BED ALARM IS ON.
[2021-01-12 03:35] VITALS: BP 110/69
--- NOTE | 2021-01-12 03:36 | NUR ---
PI RESTING QUIETLY DRINKING CHICKEN BROTH. PICTURES OF WOUNDS TAKEN . WET TO DRY DONE ON SELWYN IT AND SACRAL WOUNDS.
[2021-01-12 05:17] LABS: HEMATOCRIT 40.8 % (37.0-47.0); HEMOGLOBIN 13.3 gm/dL (12.0-15.0); MCH 28.8 pg (26.0-34.0); MCHC 32.5 g/dL (28.0-37.0); MCV 88.5 fL (80.0-100.0); RBC 4.6 mil/uL (4.20-5.00); RDW 14.8 % (10.5-14.5); WBC 14.2 thou/uL (4.0-11.0)
[2021-01-12 05:27] LABS: CREATININE 1.1 mg/dL (0.6-1.0); POTASSIUM 3.7 mmol/L (3.5-5.1)
--- NOTE | 2021-01-12 06:01 | NUR ---
PT RESTING QUIETLY AFTER OXYCODONE GIVEN FOR C/O BACK PAIN. VSS. NO S/S DISTRESS. NO SOA OR BLEEDING NOTED.
[2021-01-12 08:05] VITALS: BP 123/84
--- NOTE | 2021-01-12 15:19 | NUR ---
INITIAL ASSESSMENT: Received consult for discharge planning. NAVIN reviewed chart and spoke with nursing and attending physician. Pt was transferred to [facility] from [facility] due to wound infection/sepsis. Pt is on IV abx. Pt with hx of bilateral amputations and sacral wounds. Pt has a colostomy. Pt has been to [facility] and [facility] in the past. Pt has been hospitalized at [facility] several times this year. Attempts at finding agencies that go to [place] and accept [place] pts has been unsuccessful. NAVIN met with pt at bedside. Introduced role of SW. Pt is alert/orientated x 4. Pt reports she lives at home with her family. There is ramp to enter their mobile home. Pt has a laurent lift and motorized w/c. Pt reports her PCP is Dr. Roberto Jerry. NAVIN discussed if pt would consider going to a writing center director care facility for 24 hour nursing care. Pt states she has been to [facility] in the past, but she does not want to return there or go to [facility]. Pt's plan is to return home. Discharge home is anticipated for tomorrow. Pt is aware and agreeable with plan. NAVIN updated nursing and attending physician. Pt will need ambulance transportation scheduled through [facility] when ready for discharge. NAVIN is following to assist as needed with discharge planning.
[2021-01-12 17:08] VITALS: BP 121/73
--- NOTE | 2021-01-12 19:55 | NUR ---
ASSUMED PATIENT CARE AT 0700. A/O X4. NO DISTRESS NOTED. MULTI WOUND DRESSING CHANGED PER ORDER. PROGRESSING TOWARDS POC GOALS.
[2021-01-12 20:10] VITALS: BP 92/53
[2021-01-13 04:20] VITALS: BP 101/59
--- NOTE | 2021-01-13 04:24 | NUR ---
ASSESSMENT DOCUMENTED.PT BEEN RESTING IN NO ACUTE DISTRESS.A/OX4.VSS.HERE WITH SEPSIS AND WOUND CARE.PT BEEN UP ALL NOC,WATCHING TV.REQUEST FOR FOOD MUTIPLE TIMES.C/O PAIN TO BACK PRN MEDS GIVEN W/O RELIEF.PROCESSING TECH NOTIFIED,A DOSE OF MORPHINE X1 GIVEN WITH PARTIAL RELIEF.SR/ST ON MONITOR.COLOSTOMY AND UROSTOMY BAG INTACT AND DRAINED.ANTICIPATING DISCHARGE TO HOME TODAY. WILL CONT TO MONITOR PER POC.
[2021-01-13 07:45] VITALS: BP 106/68
--- NOTE | 2021-01-13 09:58 | NUR ---
OSTOMY CARE; ALERT, COOPERATIVE, STATES SHE IS UNSURE HOW LONG POUCHES HAVE BEEN ON? LOOSE EDGES NOTED, CHANGED UROSTOMY POUCH W/ NIKOLAS 1 08/15' CONVEX PRECUT POUCH AND CONNECTED TO DEP DRAINAGE, URINE CLEAR YELLOW, SMALL AMT SEDIMENT PRESENT, BOTH PERISTOMAL SKIN INTACT, NEW POUCH NIKOLAS CUT TO FIT APPLIANCE TO COLOSTOMY STOMA, STOMA PINK VIABLE, W/ SMALL AMT LOOSE STOOL PRESENT, SUPPLIES LEFT AT BS, PT STATES SHE HAS NOT BEEN ORDERING SUPPLIES FOR HOME USE SHE HAS BEEN IN HOSP SO FREQ AND USES SUPPLIES HOSP SENDS HOME, GIVEN LIST OF PROVIDERS FOR HER TO CONTACT FOR HOME SUPPLIES, VERBAL UNDERSTANDING 100% RECOMMENDATIONS; ADVISED TO CHANGE POUCHES Q3-5 DAYS AND PRN, EMPTY PRN FUNNEL COATER AWARE
[2021-01-13] MEDS ORDERED: OXYCODONE HCL 55 MG PO (12:16)
[2021-01-13] MEDS ORDERED: AMOX TR-K CLV1 EAC4 PO (12:16)
[2021-01-13 13:45] VITALS: BP 106/68
--- NOTE | 2021-01-13 14:12 | NUR ---
DISCHARGE NOTE: SW reviewed chart and spoke with nursing and attending physician. Pt is medically stable for discharge home today. Discharge orders/summary completed. NAVIN arranged ambulance transportation through [employer]. Trip # [id number] provided. Transportation to arrive at [facility] Between [id number] today. NAVIN met with pt at bedside to discuss discharge. Pt is aware and agreeable with discharge plann. bowling alley operator provided pt with info of where to order ostomy supplies. NAVIN updated nursing regarding transportation time. No additional SW needs identified at this time, but is available to assist should needs arise. [employer]-- To inquire about status of ride: [phone]
--- NOTE | 2021-01-13 15:02 | NUR ---
ASSUMED PATIENT CARE AT 0700. A/O X4. AFEBRILE. WOUND DRESSING CHANGED. DC TO HOME NOW.
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
== END 2021-01-13 15:03 | disposition home or self-care (01) | DRG 871 ==
LOC: 3W 17:12
PROVIDERS: ADMIT Internal Medicine; ATTEND Internal Medicine
DX: A41.9 Sepsis, unspecified organism (principal); L89.154 Pressure ulcer of sacral region, stage 4; L89.324 Pressure ulcer of left buttock, stage 4; L89.314 Pressure ulcer of right buttock, stage 4; L89.213 Pressure ulcer of right hip, stage 3; E43 Unspecified severe protein-calorie malnutrition; G82.20 Paraplegia, unspecified; L97.929 Non-pressure chronic ulcer of unspecified part of left lower leg with unspecified severity; N39.0 Urinary tract infection, site not specified; J45.909 Unspecified asthma, uncomplicated; Z96.653 Presence of artificial knee joint, bilateral; G89.4 Chronic pain syndrome; F41.9 Anxiety disorder, unspecified; E03.9 Hypothyroidism, unspecified; F17.210 Nicotine dependence, cigarettes, uncomplicated; E66.01 Morbid (severe) obesity due to excess calories; K20.90 Esophagitis, unspecified without bleeding; K59.00 Constipation, unspecified; R33.9 Retention of urine, unspecified; F10.10 Alcohol abuse, uncomplicated; Y90.9 Presence of alcohol in blood, level not specified; Z88.8 Allergy status to other drugs, medicaments and biological substances; Z88.1 Allergy status to other antibiotic agents; Z88.5 Allergy status to narcotic agent; Z91.018 Allergy to other foods; Z90.49 Acquired absence of other specified parts of digestive tract; Z89.611 Acquired absence of right leg above knee; Z87.440 Personal history of urinary (tract) infections; Z91.14 Patient's other noncompliance with medication regimen; Z71.6 Tobacco abuse counseling
CPT/HCPCS: 10779; 10879